=== PATIENT | female | born 1940 | race Caucasian/White ===

== ENCOUNTER → 2017-06-27 | Outpatient (CLI) | payer MEDICARE ==
[~2017-06-27] MED LIST: ALBUTEROL SULFAT4 MG PO; ALDACTONE25 MG PO; ALEVE220 M1 PO; CITRACAL + BON1 EACH PO; CITRACAL PO; DESOXYN5 MG PO; EVISTA PO; FISH OIL 1,2001 EAC4 PO; FOLIC ACID 40400 MCG PO; FOLIC ACID1 MG PO; IBUPROFEN 200200 M1 PO; LISINOPRIL5 MG PO; MIRALAX255 GM PO; MULTIVITAMINS PO; PERCOCET 7.5-31 EACH; PRILOSEC 20 MG20 MG PO; PROVENTIL HFA6.7 G1 INH; SINGULAIR 10 MG10 M1 PO; TACLONEX OINTME60 GM TOP; TEMOVATE15 GM TOP; ULTRAM 50MG TAB50 MG PO; UNICOMPLEX M TA1 TA1 PO
== END ==
LOC: M.RAD 12:24
DX: R05 Cough (principal); R06.02 Shortness of breath

== ENCOUNTER → 2017-08-01 | Outpatient (CLI) | payer MEDICARE | LOC: M.RAD 15:53 | DX: R05 Cough (principal); I10 Essential (primary) hypertension ==

== ENCOUNTER 2017-08-20 10:27 | Emergency (ER) | payer MEDICARE ==
[~2017-08-20] VITALS: Ht 152.4 cm; Wt 65.8 kg
[~2017-08-20 10:27] MED LIST changes: -CITRACAL + BON1 EACH PO; -DESOXYN5 MG PO; -FOLIC ACID1 MG PO; -IBUPROFEN 200200 M1 PO; -LISINOPRIL5 MG PO; -TEMOVATE15 GM TOP; -UNICOMPLEX M TA1 TA1 PO
[2017-08-20] MEDS ORDERED: CITRACAL + BON1 EACH PO (10:37)
[2017-08-20] MEDS ORDERED: IBUPROFEN 200200 M1 PO (10:37)
[2017-08-20] MEDS ORDERED: TEMOVATE15 GM TOP (10:38)
[2017-08-20] MEDS ORDERED: LISINOPRIL5 MG PO (10:39)
[2017-08-20] MEDS ORDERED: FOLIC ACID1 MG PO (10:39)
[2017-08-20] MEDS ORDERED: DESOXYN5 MG PO (10:39)
[2017-08-20] MEDS ORDERED: ALDACTONE25 MG PO (10:40)
[2017-08-20] MEDS ORDERED: UNICOMPLEX M TA1 TA1 PO (10:40)
[2017-08-20 12:35] VITALS: BP 135/71
== END 2017-08-20 12:36 | disposition home or self-care (01) ==
LOC: M.ERS 10:27
DX: S52.591A Other fractures of lower end of right radius, initial encounter for closed fracture (principal); K21.9 Gastro-esophageal reflux disease without esophagitis; M19.90 Unspecified osteoarthritis, unspecified site; Z90.49 Acquired absence of other specified parts of digestive tract; Z88.5 Allergy status to narcotic agent; W18.39XA Other fall on same level, initial encounter; Y93.89 Activity, other specified; Y92.89 Other specified places as the place of occurrence of the external cause; Y99.8 Other external cause status

== ENCOUNTER → 2017-10-13 | Outpatient (CLI) | payer MEDICARE ==
[~2017-10-13] MED LIST changes: +CITRACAL + BON1 EACH PO; +DESOXYN5 MG PO; +FOLIC ACID1 MG PO; +IBUPROFEN 200200 M1 PO; +LISINOPRIL5 MG PO; +TEMOVATE15 GM TOP; +UNICOMPLEX M TA1 TA1 PO
== END ==
LOC: M.RAD 15:26
DX: R05 Cough (principal); R29.6 Repeated falls

== ENCOUNTER → 2017-10-21 | Outpatient (CLI) | payer MEDICARE | LOC: M.WC 06:57 | DX: S81.811A Laceration without foreign body, right lower leg, initial encounter (principal); I10 Essential (primary) hypertension; K21.9 Gastro-esophageal reflux disease without esophagitis; M81.0 Age-related osteoporosis without current pathological fracture; M15.0 Primary generalized (osteo)arthritis; J45.909 Unspecified asthma, uncomplicated; Z87.891 Personal history of nicotine dependence; Z68.24 Body mass index [BMI] 24.0-24.9, adult; X58.XXXA Exposure to other specified factors, initial encounter; Y93.89 Activity, other specified; Y92.89 Other specified places as the place of occurrence of the external cause; Y99.8 Other external cause status ==

== ENCOUNTER → 2017-10-28 | Outpatient (CLI) | payer MEDICARE | LOC: M.WC 01:37 | DX: I87.331 Chronic venous hypertension (idiopathic) with ulcer and inflammation of right lower extremity (principal); L97.812 Non-pressure chronic ulcer of other part of right lower leg with fat layer exposed; M15.0 Primary generalized (osteo)arthritis; K21.9 Gastro-esophageal reflux disease without esophagitis; M81.0 Age-related osteoporosis without current pathological fracture; J45.40 Moderate persistent asthma, uncomplicated; Z87.891 Personal history of nicotine dependence ==

== ENCOUNTER → 2017-11-04 | Outpatient (CLI) | payer MEDICARE | LOC: M.WC 04:38 | DX: S81.801D Unspecified open wound, right lower leg, subsequent encounter (principal); S81.831D Puncture wound without foreign body, right lower leg, subsequent encounter; I10 Essential (primary) hypertension; J45.40 Moderate persistent asthma, uncomplicated; M15.0 Primary generalized (osteo)arthritis; K21.9 Gastro-esophageal reflux disease without esophagitis; M81.0 Age-related osteoporosis without current pathological fracture; Z87.891 Personal history of nicotine dependence; X58.XXXD Exposure to other specified factors, subsequent encounter ==

== ENCOUNTER → 2017-11-11 | Outpatient (CLI) | payer MEDICARE | LOC: M.WC 03:51 | DX: S81.801D Unspecified open wound, right lower leg, subsequent encounter (principal); I10 Essential (primary) hypertension; K21.9 Gastro-esophageal reflux disease without esophagitis; M15.0 Primary generalized (osteo)arthritis; M81.0 Age-related osteoporosis without current pathological fracture; J45.40 Moderate persistent asthma, uncomplicated; Z87.891 Personal history of nicotine dependence; Z68.24 Body mass index [BMI] 24.0-24.9, adult; X58.XXXD Exposure to other specified factors, subsequent encounter ==

== ENCOUNTER → 2017-11-18 | Outpatient (CLI) | payer MEDICARE | LOC: M.WC 01:52 | DX: S81.801D Unspecified open wound, right lower leg, subsequent encounter (principal); I10 Essential (primary) hypertension; M81.0 Age-related osteoporosis without current pathological fracture; M19.90 Unspecified osteoarthritis, unspecified site; K21.9 Gastro-esophageal reflux disease without esophagitis; J45.909 Unspecified asthma, uncomplicated; Z87.891 Personal history of nicotine dependence; Z91.81 History of falling; Z96.641 Presence of right artificial hip joint; X58.XXXD Exposure to other specified factors, subsequent encounter ==

== ENCOUNTER → 2017-11-25 | Outpatient (CLI) | payer MEDICARE | LOC: M.WC 01:47 | DX: S81.801D Unspecified open wound, right lower leg, subsequent encounter (principal); I87.331 Chronic venous hypertension (idiopathic) with ulcer and inflammation of right lower extremity; L97.812 Non-pressure chronic ulcer of other part of right lower leg with fat layer exposed; K21.9 Gastro-esophageal reflux disease without esophagitis; M81.0 Age-related osteoporosis without current pathological fracture; M15.0 Primary generalized (osteo)arthritis; J45.909 Unspecified asthma, uncomplicated; Z87.891 Personal history of nicotine dependence; X58.XXXD Exposure to other specified factors, subsequent encounter ==

== ENCOUNTER → 2017-12-02 | Outpatient (CLI) | payer MEDICARE | LOC: M.WC 01:18 | DX: S81.801D Unspecified open wound, right lower leg, subsequent encounter (principal); I10 Essential (primary) hypertension; I87.2 Venous insufficiency (chronic) (peripheral); K21.9 Gastro-esophageal reflux disease without esophagitis; M81.0 Age-related osteoporosis without current pathological fracture; M19.90 Unspecified osteoarthritis, unspecified site; J45.909 Unspecified asthma, uncomplicated; Z87.891 Personal history of nicotine dependence; W19.XXXD Unspecified fall, subsequent encounter ==

== ENCOUNTER → 2017-12-09 | Outpatient (CLI) | payer MEDICARE | LOC: M.WC 01:59 | DX: S81.811D Laceration without foreign body, right lower leg, subsequent encounter (principal); K21.9 Gastro-esophageal reflux disease without esophagitis; M15.0 Primary generalized (osteo)arthritis; M81.0 Age-related osteoporosis without current pathological fracture; I10 Essential (primary) hypertension; J45.40 Moderate persistent asthma, uncomplicated; Z87.891 Personal history of nicotine dependence; X58.XXXD Exposure to other specified factors, subsequent encounter ==

== ENCOUNTER → 2017-12-16 | Outpatient (CLI) | payer MEDICARE | LOC: M.WC 03:43 | DX: S81.801D Unspecified open wound, right lower leg, subsequent encounter (principal); K21.9 Gastro-esophageal reflux disease without esophagitis; M81.0 Age-related osteoporosis without current pathological fracture; M19.90 Unspecified osteoarthritis, unspecified site; J45.909 Unspecified asthma, uncomplicated; Z87.891 Personal history of nicotine dependence; X58.XXXD Exposure to other specified factors, subsequent encounter ==

== ENCOUNTER → 2017-12-23 | Outpatient (CLI) | payer MEDICARE | LOC: M.WC 01:56 | DX: I87.331 Chronic venous hypertension (idiopathic) with ulcer and inflammation of right lower extremity (principal); L97.811 Non-pressure chronic ulcer of other part of right lower leg limited to breakdown of skin; M15.0 Primary generalized (osteo)arthritis; K21.9 Gastro-esophageal reflux disease without esophagitis; M81.0 Age-related osteoporosis without current pathological fracture; J45.40 Moderate persistent asthma, uncomplicated; Z91.81 History of falling; Z68.24 Body mass index [BMI] 24.0-24.9, adult; Z87.891 Personal history of nicotine dependence ==

== ENCOUNTER → 2017-12-30 | Outpatient (CLI) | payer MEDICARE | LOC: M.WC 02:17 | DX: I87.331 Chronic venous hypertension (idiopathic) with ulcer and inflammation of right lower extremity (principal); L97.811 Non-pressure chronic ulcer of other part of right lower leg limited to breakdown of skin; J45.40 Moderate persistent asthma, uncomplicated; K21.9 Gastro-esophageal reflux disease without esophagitis; M81.0 Age-related osteoporosis without current pathological fracture; M15.0 Primary generalized (osteo)arthritis; M50.30 Other cervical disc degeneration, unspecified cervical region; Z87.891 Personal history of nicotine dependence; Z85.038 Personal history of other malignant neoplasm of large intestine ==

== ENCOUNTER → 2018-01-24 | Outpatient (CLI) | payer MEDICARE | LOC: M.RAD 13:44 | DX: Z12.31 Encounter for screening mammogram for malignant neoplasm of breast (principal); M19.90 Unspecified osteoarthritis, unspecified site; K21.9 Gastro-esophageal reflux disease without esophagitis ==

== ENCOUNTER → 2018-02-15 | Outpatient (CLI) | payer MEDICARE ==
[2018-02-15 13:20] LABS: HEMATOCRIT 34.2 % (37.0-47.0); HEMOGLOBIN 11.2 gm/dL (12.0-15.0); MCH 28.1 pg (26.0-34.0); MCHC 32.6 g/dL (28.0-37.0); MCV 86.1 fL (80.0-100.0); MPV 6.7 fl. (7.2-11.1); RBC 3.97 mil/uL (4.20-5.00); RDW-CV 14.4 % (10.5-14.5); WBC 6.2 thou/uL (4.0-11.0)
[2018-02-15 13:30] LABS: ALBUMIN 3.9 g/dL (3.4-5.0); CALCIUM 9.3 mg/dL (8.5-10.1); CREATININE 1.2 mg/dL (0.6-1.3); POTASSIUM 4.9 mmol/L (3.5-5.1); TOTAL BILIRUBIN 0.3 mg/dL (<0.1-1.0); TOTAL PROTEIN 7.5 g/dL (6.4-8.2)
[2018-02-16 16:40] LABS: HEPATITIS B SURFACE AG Negative (Negative); HIV-1/HIV-2 ANTIBODY Non Reactive (Non Reactive)
== END ==
LOC: M.LAB 12:30
DX: Z01.89 Encounter for other specified special examinations (principal); L40.0 Psoriasis vulgaris; I10 Essential (primary) hypertension; J45.909 Unspecified asthma, uncomplicated; K21.9 Gastro-esophageal reflux disease without esophagitis; M19.90 Unspecified osteoarthritis, unspecified site; M85.89 Other specified disorders of bone density and structure, multiple sites; D50.9 Iron deficiency anemia, unspecified; Z79.899 Other long term (current) drug therapy

== ENCOUNTER → 2018-11-02 | Outpatient (CLI) | payer MEDICARE | LOC: M.RAD 11:21 | DX: R05 Cough (principal); R06.02 Shortness of breath; Z88.8 Allergy status to other drugs, medicaments and biological substances ==

== ENCOUNTER 2018-12-27 14:58 | Emergency (ER) | payer MEDICARE ==
[~2018-12-27] VITALS: Ht 152.4 cm; Wt 61.2 kg
[2018-12-27] MEDS ORDERED: LASIX 40 MG TAB40 M2 PO (15:21)
[2018-12-27] MEDS ORDERED: ATROVENT HFA14 GM INH (15:23)
[2018-12-27] MEDS ORDERED: PROLIA60 MG/1 ML (15:24)
[2018-12-27] MEDS ORDERED: ZANTAC 150MG T150 MG PO (15:24)
[2018-12-27] MEDS ORDERED: ULTRAM 50MG TAB50 MG PO (15:24)
[2018-12-27 15:45] LABS: ABSOLUTE EOSINOPHILS 0.4 thou/uL (0.0-0.7); ABSOLUTE MONOCYTES 0.4 thou/uL (0.0-1.2); ABSOLUTE NEUTROPHILS 3.7 thou/uL (1.6-8.1); BASOPHILS 0.8 %; EOSINOPHILS 6.8 %; HEMATOCRIT 31.2 % (37.0-47.0); HEMOGLOBIN 10.1 gm/dL (12.0-15.0); LYMPHOCYTES 17.5 %; MCH 28.5 pg (26.0-34.0); MCHC 32.3 g/dL (28.0-37.0); MCV 88.2 fL (80.0-100.0); MONOCYTES 7.9 %; MPV 6.3 fl. (7.2-11.1); NUCLEATED RBCS 0 /100WBC; PLATELET COUNT* 361 thou/uL (150-400); RBC 3.53 mil/uL (4.20-5.00); RDW-CV 15.1 % (10.5-14.5); WBC 5.6 thou/uL (4.0-11.0)
[2018-12-27 15:53] LABS: CALCIUM 8.5 mg/dL (8.5-10.1); CREATININE 1.2 mg/dL (0.6-1.3); POTASSIUM 4.4 mmol/L (3.5-5.1)
[2018-12-27 15:57] LABS: ALBUMIN 3.5 g/dL (3.4-5.0); TOTAL BILIRUBIN 0.2 mg/dL (<0.1-1.0)
[2018-12-27 17:28] VITALS: BP 145/59
== END 2018-12-27 17:28 | disposition home or self-care (01) ==
LOC: M.ERS 14:58
PROVIDERS: Physician Assistant
DX: R60.0 Localized edema (principal); J45.909 Unspecified asthma, uncomplicated; K21.9 Gastro-esophageal reflux disease without esophagitis; M19.90 Unspecified osteoarthritis, unspecified site; Z96.659 Presence of unspecified artificial knee joint; Z90.49 Acquired absence of other specified parts of digestive tract; Z88.6 Allergy status to analgesic agent

== ENCOUNTER → 2019-01-22 | Outpatient (CLI) | payer MEDICARE ==
[~2019-01-22] MED LIST changes: +ATROVENT HFA14 GM INH; +LASIX 40 MG TAB40 M2 PO; +PROLIA60 MG/1 ML; +ZANTAC 150MG T150 MG PO
== END ==
LOC: M.RAD 11:48
DX: R05 Cough (principal); R06.02 Shortness of breath

== ENCOUNTER → 2019-06-05 | Outpatient (CLI) | payer MEDICARE | LOC: M.LAB 12:38 | DX: J45.20 Mild intermittent asthma, uncomplicated (principal) ==